=== PATIENT | male | born 1980 | race African-American/Black ===

== ENCOUNTER 2017-04-10 05:33 | Emergency (ER) | payer OTHER ==
[2017-04-10 08:26] VITALS: BP 147/78
== END 2017-04-10 08:26 | disposition home or self-care (01) ==
LOC: ED 05:33
DX: S16.1XXA Strain of muscle, fascia and tendon at neck level, initial encounter (principal); M50.323 Other cervical disc degeneration at C6-C7 level; V43.52XA Car driver injured in collision with other type car in traffic accident, initial encounter; Y93.89 Activity, other specified; Y99.8 Other external cause status; Y92.89 Other specified places as the place of occurrence of the external cause

== ENCOUNTER 2018-03-02 16:07 | Emergency (ER) | payer OTHER ==
[~2018-03-02] VITALS: Ht 180.3 cm; Wt 110.2 kg
[2018-03-02 16:39] VITALS: Ht 180.3 cm; Wt 110.2 kg
[2018-03-02 19:55] VITALS: BP 136/89
== END 2018-03-02 19:55 | disposition home or self-care (01) ==
LOC: ED 16:07
DX: S16.1XXA Strain of muscle, fascia and tendon at neck level, initial encounter (principal); S39.012A Strain of muscle, fascia and tendon of lower back, initial encounter; V89.2XXA Person injured in unspecified motor-vehicle accident, traffic, initial encounter; Y93.89 Activity, other specified; Y92.89 Other specified places as the place of occurrence of the external cause; Y99.8 Other external cause status
CPT/HCPCS: Q0092